=== PATIENT | male | born 1975 | race American Indian/Alaskan Native ===

== ENCOUNTER 2019-03-19 22:27 | Emergency (ER) | payer SELFPAY ==
--- NOTE | 2019-03-20 01:09 | XRay Report ---
CHEST 2 VIEWS INDICATION: Cough and KIERA. COMPARISON: None. FINDINGS: Support devices: None. Heart: Mild cardiomegaly. Lungs/Pleura: Localized consolidation right base. No significant pleural effusion. IMPRESSION: Right basilar pneumonia. Signer Name: Lenin Wade MD Signed: 03/20/2019 1:04 AM Workstation Name: [id number]
[2019-03-20] MEDS ORDERED: levoFLOXacin 750 MG TAB PO ONE (01:12)
[2019-03-20] MEDS ORDERED: IPRATROPIUM/ALBUTEROL SULFATE 3 ML AMPUL.NEB IH ONE (01:12)
--- NOTE | 2019-03-20 01:39 | Emergency Department Report ---
- General Chief Complaint: Dyspnea/Respdistress Stated Complaint: SOB Time Seen by Provider: 03/20/19 00:46 Source: patient Mode of arrival: Ambulatory Limitations: No Limitations - History of Present Illness Initial Comments: This pleasant 43-year-old male present emergency department with a chief complaint of cough, congestion and shortness of breath the past 2 days. Patient reports a past medical history of hypertension but is not currently name medications. He reports history of tobacco use and smokes about a pack a day for the past 10 years. Patient reports he has had a productive cough and tightness in his chest as well as subjective fever at home. Patient denies any dyspnea on exertion or chest pain on exertion, pleuritic pain, lower extremity edema, recent travel, sick contacts, nausea, vomiting, diarrhea, or any associated symptoms. Patient denies any pain. MD Complaint: fever, cough Onset/Timin -: days(s) Severity: mild Severity scale (0 -10): 0 Consistency: intermittent Improves With: nothing Worsens With: activity Associated Symptoms: denies other symptoms. denies: myalgias, diaphoresis, headache, rhinorrhea, nasal congestion, sore throat, stiff neck, chest pain, abdominal pain, nausea, vomiting, diarrhea, dysuria, rash, confusion, right sweats, epistaxis, hoarseness Treatments Prior to Arrival: none - Related Data Previous Rx's Medication Instructions Recorded Last Taken Type ALBUTEROL Inhaler (OR & NICU) 2 puff IH QID PRN #8.5 gram 03/20/19 Unknown Rx [ProAir HFA Inhaler] levoFLOXacin [Levaquin] 750 mg PO QDAY #5 tablet 03/20/19 Unknown Rx methylPREDNISolone [Medrol 4MG 4 mg PO ONCE #1 tab.ds.pk 03/20/19 Unknown Rx DOSEPAK (21 tabs)] Allergies Allergy/AdvReac Type Severity Reaction Status Date / Time No Known Allergies Allergy Unverified 03/20/19 00:16 ED Review of Systems ROS: Stated complaint: SOB Other details as noted in HPI Comment: All other systems reviewed and negative Constitutional: see HPI, fever. denies: chills Eyes: denies: eye pain, eye discharge, vision change ENT: denies: ear pain, throat pain Respiratory: see HPI, cough, wheezing. denies: orthopnea, shortness of breath, SOB with exertion, SOB at rest Cardiovascular: denies: chest pain, palpitations Endocrine: no symptoms reported Gastrointestinal: denies: abdominal pain, nausea, diarrhea Genitourinary: denies: urgency, dysuria Musculoskeletal: denies: back pain, joint swelling, arthralgia Skin: denies: rash, lesions Neurological: denies: headache, weakness, paresthesias Psychiatric: denies: anxiety, depression Hematological/Lymphatic: denies: easy bleeding, easy bruising ED Past Medical Hx - Past Medical History Previous Medical History?: Yes Hx Hypertension: Yes - Surgical History Past Surgical History?: No - Social History Smoking Status: Current Every Day Smoker Substance Use Type: None - Medications Home Medications: Home Medications Medication Instructions Recorded Confirmed Last Taken Type ALBUTEROL Inhaler (OR & NICU) 2 puff IH QID PRN #8.5 gram 03/20/19 Unknown Rx [ProAir HFA Inhaler] levoFLOXacin [Levaquin] 750 mg PO QDAY #5 tablet 03/20/19 Unknown Rx methylPREDNISolone [Medrol 4MG 4 mg PO ONCE #1 tab.ds.pk 03/20/19 Unknown Rx DOSEPAK (21 tabs)] ED Physical Exam - General Limitations: No Limitations General appearance: alert, in no apparent distress - Head Head exam: Present: atraumatic, normocephalic - Eye Eye exam: Present: normal appearance, PERRL, EOMI Pupils: Present: normal accommodation - ENT ENT exam: Present: normal exam, normal orophraynx, mucous membranes moist, TM's normal bilaterally - Neck Neck exam: Present: normal inspection, full ROM. Absent: tenderness, meningismus - Respiratory Respiratory exam: Present: normal lung sounds bilaterally, wheezes (mild expiratory wheezes bilaterally with no accessory muscle use or increased work of breathing). Absent: respiratory distress, rales, rhonchi, stridor - Cardiovascular Cardiovascular Exam: Present: regular rate, normal rhythm, normal heart sounds. Absent: systolic murmur, diastolic murmur, rubs, gallop - GI/Abdominal GI/Abdominal exam: Present: soft, normal bowel sounds. Absent: tenderness, guarding, rebound, rigid - Rectal Rectal exam: Present: deferred - Extremities Exam Extremities exam: Present: normal inspection, full ROM, other (negative Homans sign bilaterally, no posterior calf tenderness or palpable cords.). Absent: tenderness, calf tenderness - Back Exam Back exam: Present: normal inspection, full ROM. Absent: tenderness, CVA tenderness (R), CVA tenderness (L) - Neurological Exam Neurological exam: Present: alert, oriented X3, normal gait. Absent: motor sensory deficit - Psychiatric Psychiatric exam: Present: normal affect, normal mood - Skin Skin exam: Present: warm, dry, intact, normal color. Absent: rash ED Course Vital Signs 03/20/19 00:09 Temperature 98.2 F Pulse Rate 78 Respiratory 20 Rate Blood Pressure 169/108 [Left] O2 Sat by Pulse 96 Oximetry ED Medical Decision Making - Radiology Data Radiology results: report reviewed, image reviewed XRay Report Signed Patient: DOMINIQUE SEPULVEDA MR#: [id number] : 1975 Acct:[id number] Age/Sex: 43 / M ADM Date: 03/19/19 Loc: ED Attending Dr: Ordering Physician: VICTOR MANUEL ROLAND Date of Service: 03/20/19 Procedure(s): XR chest routine 2V Accession Number(s): [id number] cc: VICTOR MANUEL ROLAND Fluoro Time In Minutes: CHEST 2 VIEWS INDICATION: Cough and KIERA. COMPARISON: None. FINDINGS: Support devices: None. Heart: Mild cardiomegaly. Lungs/Pleura: Localized consolidation right base. No significant pleural effusion. IMPRESSION: Right basilar pneumonia. Signer Name: Lenin Wade MD Signed: 03/20/2019 1:04 AM Workstation Name: [id number] Transcribed By: ES Dictated By: Lenin Wade MD Electronically Authenticated By: Lenin Wade MD Signed Date/Time: 03/20/19 0104 - Medical Decision Making Patient is nontoxic in no acute distress. Vitals are stable with a pulse ox of 96 and no tachycardia. Patient is PERC negative and low risk for PE by Wells criteria. He had wheezing on exam and was given a breathing treatment and steroid cream or department and his symptoms significantly improved. Wheezing resolved after reevaluation. X-ray was ordered and showed a right basilar pneumonia. Patient is otherwise young and healthy and I will treat him with Levaquin 750 by mouth daily 5 days. First dose was given in emergency department. He was instructed to follow-up with his primary care doctor and return for spreading changing worsening symptoms. Patient has no SIRS criteria and does not meet sepsis criteria. He is well-appearing and agreeable with plan. All questions were answered - Differential Diagnosis pneumonia, influenza, PE, viral respiratory infection, COPD exacerbation Critical care attestation.: If time is entered above; I have spent that time in minutes in the direct care of this critically ill patient, excluding procedure time. ED Disposition Clinical Impression: CAP (community acquired pneumonia) Qualifiers: Laterality: right Lung location: lower lobe of lung Qualified Code(s): J18.9 - Pneumonia, unspecified organism Disposition: TO HOME OR SELFCARE Is pt being admited?: No Does the pt Need Aspirin: No Condition: Stable Instructions: Bacterial Pneumonia (ED) Prescriptions: levoFLOXacin [Levaquin] 750 mg PO QDAY #5 tablet methylPREDNISolone [Medrol 4MG DOSEPAK (21 tabs)] 4 mg PO ONCE #1 tab.ds.pk ALBUTEROL Inhaler (OR & NICU) [ProAir HFA Inhaler] 2 puff IH QID PRN #8.5 gram PRN Reason: Shortness Of Breath Referrals: PRIMARY CARE, [Primary Care Provider] - 3-[address] [facility] [Provider Group] - 3-5 Days JERSON GRAY DO [Staff Physician] - 3-5 Days Forms: Work/School Release Form(ED) Time of Disposition: 01:43
[2019-03-20 01:58] VITALS: BP 149/88
== END 2019-03-20 02:00 | disposition home or self-care (01) ==
LOC: ED 22:27
DX: J18.9 Pneumonia, unspecified organism (principal); F17.200 Nicotine dependence, unspecified, uncomplicated; I10 Essential (primary) hypertension; Z79.899 Other long term (current) drug therapy
CPT/HCPCS: 71046; 94640

== ENCOUNTER 2019-03-28 04:33 | Inpatient (IN) | payer SELFPAY ==
[2019-03-28] MEDS ORDERED: IPRATROPIUM/ALBUTEROL SULFATE 3 ML AMPUL.NEB IH ONE (05:20)
[2019-03-28] MEDS ORDERED: predniSONE 20 MG TAB PO ONE (05:20)
--- NOTE | 2019-03-28 05:35 | XRay Report ---
CHEST 1 VIEW INDICATION / CLINICAL INFORMATION: Dyspnea. COMPARISON: None available. FINDINGS: SUPPORT DEVICES: None. HEART / MEDIASTINUM: Mild cardiomegaly LUNGS / PLEURA: Patchy bibasilar airspace density noted bilaterally. Small pleural effusions present. Signer Name: Quinn Paredes MD Signed: 03/28/2019 5:31 AM Workstation Name: [id number]
[2019-03-28 06:03] LABS: Basophils % (Auto) 0.5 % (0.0-1.8); Eosinophils # (Auto) 0.2 K/mm3 (0.0-0.4); Eosinophils % (Auto) 3.1 % (0.0-4.3); Hematocrit 39.6 % (35.5-45.6); Hemoglobin 13.3 gm/dl (11.8-15.2); Lymphocytes # (Auto) 1.6 K/mm3 (1.2-5.4); Lymphocytes % (Auto) 24.1 % (13.4-35.0); Mean Corpuscular HGB Conc 34 % (32-34); Mean Corpuscular Volume 86 fl (84-94); Monocytes # (Auto) 0.5 K/mm3 (0.0-0.8); Monocytes % (Auto) 6.7 % (0.0-7.3); Platelet Count 230 K/mm3 (140-440); Red Blood Count 4.62 M/mm3 (3.65-5.03); Red Cell Distribution Width 15.1 % (13.2-15.2)
[2019-03-28] MEDS ORDERED: NITROGLYCERIN 2% OINT 1 GM TP ONE (06:18)
[2019-03-28 06:28] LABS: Alanine Aminotransferase 49 units/L (7-56); Albumin 3.8 g/dL (3.9-5); BUN/Creatinine Ratio 20; Blood Urea Nitrogen 20 mg/dL (9-20); Calcium 8.5 mg/dL (8.4-10.2); Hemolysis Index 2
--- NOTE | 2019-03-28 07:24 | Emergency Department Report ---
ED Shortness of Breath HPI - General Chief Complaint: Upper Respiratory Infection Stated Complaint: COUGH KIERA Time Seen by Provider: 03/28/19 06:16 Source: patient Mode of arrival: Ambulatory Limitations: No Limitations - History of Present Illness Initial Comments: This is a 43-year-old man who denies previous history of hypertension. I reviewed his previous vital signs upon his visit on 1120. He had stage 2-3 moderately severe hypertension. He was treated for URI/questionable pneumonia. He states he's been short of breath throughout this time. He has dyspneia on exertion. He does not complain of chest pain. He has accelerated hypertension today. MD Complaint: shortness of breath -: Gradual Severity: moderate (dyspnea denies chest) Consistency: intermittent Worsens With: lying flat Context: recent URI Associated Symptoms: denies other symptoms - Related Data Home Medications Medication Instructions Recorded Confirmed Last Taken No Known Home Medications [No 03/28/19 03/28/19 Unknown Reported Home Medications] Allergies Allergy/AdvReac Type Severity Reaction Status Date / Time No Known Allergies Allergy Unverified 03/20/19 00:16 ED Review of Systems ROS: Stated complaint: COUGH KIERA Other details as noted in HPI Constitutional: denies: chills, fever Eyes: denies: eye pain, eye discharge, vision change ENT: denies: ear pain, throat pain Respiratory: shortness of breath. denies: cough, wheezing Cardiovascular: denies: chest pain, palpitations Endocrine: no symptoms reported Gastrointestinal: denies: abdominal pain, nausea, diarrhea Genitourinary: denies: urgency, dysuria Musculoskeletal: denies: back pain, joint swelling, arthralgia Skin: denies: rash, lesions Neurological: denies: headache, weakness, paresthesias Psychiatric: denies: anxiety, depression Hematological/Lymphatic: denies: easy bleeding, easy bruising ED Past Medical Hx - Past Medical History Previous Medical History?: Yes Hx Hypertension: Yes - Surgical History Past Surgical History?: No - Social History Smoking Status: Current Every Day Smoker - Medications Home Medications: Home Medications Medication Instructions Recorded Confirmed Last Taken Type No Known Home Medications [No 03/28/19 03/28/19 Unknown History Reported Home Medications] ED Physical Exam - General Limitations: No Limitations General appearance: alert, in no apparent distress - Head Head exam: Present: atraumatic, normocephalic - Eye Eye exam: Present: normal appearance. Absent: scleral icterus - ENT ENT exam: Present: mucous membranes moist - Neck Neck exam: Present: normal inspection - Respiratory Respiratory exam: Present: rales (bilaterally). Absent: respiratory distress - Cardiovascular Cardiovascular Exam: Present: regular rate, normal rhythm, S3, S4. Absent: systolic murmur, diastolic murmur, rubs, gallop - GI/Abdominal GI/Abdominal exam: Present: soft, normal bowel sounds. Absent: distended, tenderness, guarding, rebound, rigid - Rectal Rectal exam: Present: deferred - Extremities Exam Extremities exam: Present: other (1+ pretibial edema). Absent: calf tenderness - Back Exam Back exam: Present: normal inspection - Neurological Exam Neurological exam: Present: alert, oriented X3, CN II-XII intact. Absent: motor sensory deficit - Psychiatric Psychiatric exam: Present: normal affect, normal mood - Skin Skin exam: Present: warm, dry, intact, normal color. Absent: rash ED Course Vital Signs 03/28/19 03/28/19 03/28/19 04:38 05:09 05:42 Temperature 97.8 F 98.3 F Pulse Rate 87 84 85 Pulse Rate [ Bilateral Throughout] Respiratory 20 23 16 Rate Respiratory Rate [Bilateral Throughout] Blood Pressure 186/124 174/118 Blood Pressure 174/118 [Left] O2 Sat by Pulse 92 96 96 Oximetry 03/28/19 03/28/19 03/28/19 05:55 06:00 06:31 Temperature Pulse Rate 79 84 Pulse Rate [ 85 Bilateral Throughout] Respiratory 22 Rate Respiratory 20 Rate [Bilateral Throughout] Blood Pressure 172/121 157/116 Blood Pressure [Left] O2 Sat by Pulse 98 Oximetry 03/28/19 06:41 Temperature Pulse Rate 89 Pulse Rate [ Bilateral Throughout] Respiratory Rate Respiratory Rate [Bilateral Throughout] Blood Pressure 157/116 Blood Pressure [Left] O2 Sat by Pulse Oximetry ED Medical Decision Making - Lab Data Result diagrams: 03/28/19 05:35 03/28/19 05:35 - EKG Data -: EKG Interpreted by Co EKG shows normal: sinus rhythm Rate: normal - EKG Data Interpretation: nonspecific ST-T wave sam, other (left axis deviation/LAFB and poor R-wave progression) - Radiology Data Radiology results: report reviewed (LUNGS / PLEURA: Patchy bibasilar airspace density noted bilaterally. Small pleural effusions), image reviewed Critical care attestation.: If time is entered above; I have spent that time in minutes in the direct care of this critically ill patient, excluding procedure time. ED Disposition Clinical Impression: Malignant hypertension, CHF (congestive heart failure) Disposition: OP ADMIT IP TO THIS HOSP Is pt being admited?: Yes Does the pt Need Aspirin: Yes Condition: Stable Instructions: Hypertension (ED) Referrals: PRIMARY CARE, [Primary Care Provider] - 3-5 Days Time of Disposition: 07:31
[2019-03-28] MEDS ORDERED: ASPIRIN 325 MG TAB PO ONE (07:31)
[2019-03-28] MEDS ORDERED: FUROSEMIDE 40 MG/4 ML INJ IV ONE (07:32)
[2019-03-28 07:46] LABS: INR 1.01 (0.87-1.13)
[2019-03-28 07:47] LABS: Partial Thromboplastin Time 30.7 Sec. (24.2-36.6)
[2019-03-28 08:49] LABS: Bilirubin,Urine NEG (Negative); Blood,Urine NEG (Negative); Color,Urine Yellow (Yellow); Protein,Urine <15 mg/dL mg/dL (Negative); Urobilinogen,Urine < 2.0 mg/dL (<2.0)
[2019-03-28 09:09] LABS: Amphetamine Screen,Urine PRESUMPTIVE NEGATIVE; Benzodiazepines Screen,Urine PRESUMPTIVE NEGATIVE; Cannabinoid Screen,Urine PRESUMPTIVE NEGATIVE; Cocaine Screen,Urine PRESUMPTIVE NEGATIVE; Methadone Screen,Urine PRESUMPTIVE NEGATIVE; Opiate Screen,Urine PRESUMPTIVE NEGATIVE
--- NOTE | 2019-03-28 12:19 | History and Physical Report ---
History of Present Illness Date of examination: 03/28/19 Date of admission: 03/28/19 07:37 Chief complaint: Shortness of breath on exertion for 4 days History of present illness: 43-year-old -[place] male with history of hypertension who is not taking any medications comes in for increasing shortness of breath on exertion for last 3-4 days. Patient was treated for questionable pneumonia and upper respiratory tract infection on 03/18/2019. Patient was given antibiotics with no relief. In the emergency room patient's blood pressure was very high--186/124.Patient also has sob on minimal exertion and orthopnea. Patient was diagnosed with high blood pressure 10 months ago. Patient very noncompliant and in denial about his blood pressure. Past Medical History Previous Medical History?: Yes Hx Hypertension: Yes Surgical History Past Surgical History?: No Social History Smoking Status: Current Every Day Smoker Family history Htn Medications Home Medications: Home Medications Medication Instructions Recorded Confirmed Last Taken Type No Known Home Medications [No 03/28/19 03/28/19 Unknown History Reported Home Medications] Review of Systems ROS: Stated complaint: COUGH KIERA Other details as noted in HPI Constitutional: denies: chills, fever Eyes: denies: eye pain, eye discharge, vision change ENT: denies: ear pain, throat pain Respiratory: shortness of breath. denies: cough, wheezing Cardiovascular: denies: chest pain, palpitations Endocrine: no symptoms reported Gastrointestinal: denies: abdominal pain, nausea, diarrhea Genitourinary: denies: urgency, dysuria Musculoskeletal: denies: back pain, joint swelling, arthralgia Skin: denies: rash, lesions Neurological: denies: headache, weakness, paresthesias Psychiatric: denies: anxiety, depression Hematological/Lymphatic: denies: easy bleeding, easy bruising Medications and Allergies Allergies Allergy/AdvReac Type Severity Reaction Status Date / Time No Known Allergies Allergy Verified 03/28/19 12:30 Home Medications Medication Instructions Recorded Confirmed Last Taken Type Potassium Chloride [K-Dur] 10 meq PO QDAY #30 tablet 03/28/19 Unknown Rx Valsartan [Diovan] 160 mg PO BID #60 tablet 03/28/19 Unknown Rx carvediloL [Coreg] 6.25 mg PO BID #60 tablet 03/28/19 Unknown Rx hydroCHLOROthiazide [HCTZ] 25 mg PO QDAY #30 tablet 03/28/19 Unknown Rx Exam - Constitutional Vitals: Temp Pulse Resp BP Pulse Ox 98.0 F 88 16 159/99 96 03/28/19 11:14 03/28/19 11:14 03/28/19 11:14 03/28/19 11:14 03/28/19 11:14 General appearance: Present: no acute distress, well-nourished - EENT Eyes: Present: PERRL ENT: hearing intact, clear oral mucosa - Neck Neck: Present: supple, normal ROM - Respiratory Respiratory effort: normal Respiratory: bilateral: CTA - Cardiovascular Heart rate: 86 Rhythm: regular Heart Sounds: Present: S1 & S2. Absent: rub, click - Extremities Extremities: no ischemia, pulses intact, pulses symmetrical, No edema Peripheral Pulses: within normal limits - Abdominal General gastrointestinal: Present: soft, non-tender, non-distended, normal bowel sounds Male genitourinary: Present: normal - Rectal Rectal Exam: deferred - Integumentary Integumentary: Present: clear, warm, dry - Musculoskeletal Musculoskeletal: gait normal, strength equal bilaterally - Psychiatric Psychiatric: appropriate mood/affect, intact judgment & insight - Neurologic Neurologic: CNII-XII intact, moves all extremities Results - Labs CBC & Chem 7: 03/28/19 05:35 03/28/19 05:35 Labs: Laboratory Last Values WBC 6.8 K/mm3 (4.5-11.0) 03/28/19 05:35 RBC 4.62 M/mm3 (3.65-5.03) 03/28/19 05:35 Hgb 13.3 gm/dl (11.8-15.2) 03/28/19 05:35 Hct 39.6 % (35.5-45.6) 03/28/19 05:35 MCV 86 fl (84-94) 03/28/19 05:35 MCH 29 pg (28-32) 03/28/19 05:35 MCHC 34 % (32-34) 03/28/19 05:35 RDW 15.1 % (13.2-15.2) 03/28/19 05:35 Plt Count 230 K/mm3 (140-440) 03/28/19 05:35 Lymph % (Auto) 24.1 % (13.4-35.0) 03/28/19 05:35 Daniels % (Auto) 6.7 % (0.0-7.3) 03/28/19 05:35 Eos % (Auto) 3.1 % (0.0-4.3) 03/28/19 05:35 Baso % (Auto) 0.5 % (0.0-1.8) 03/28/19 05:35 Lymph # 1.6 K/mm3 (1.2-5.4) 03/28/19 05:35 Daniels # 0.5 K/mm3 (0.0-0.8) 03/28/19 05:35 Eos # 0.2 K/mm3 (0.0-0.4) 03/28/19 05:35 Baso # 0.0 K/mm3 (0.0-0.1) 03/28/19 05:35 Seg Neutrophils % 65.6 % (40.0-70.0) 03/28/19 05:35 Seg Neutrophils # 4.4 K/mm3 (1.8-7.7) 03/28/19 05:35 PT 13.2 Sec. (12.2-14.9) 03/28/19 06:35 INR 1.01 (0.87-1.13) 03/28/19 06:35 APTT 30.7 Sec. (24.2-36.6) 03/28/19 06:35 Sodium 142 mmol/L (137-145) 03/28/19 05:35 Potassium 3.6 mmol/L (3.6-5.0) 03/28/19 05:35 Chloride 106.3 mmol/L (98-107) 03/28/19 05:35 Carbon Dioxide 26 mmol/L (22-30) 03/28/19 05:35 Anion Gap 13 mmol/L 03/28/19 05:35 BUN 20 mg/dL (9-20) 03/28/19 05:35 Creatinine 1.0 mg/dL (0.8-1.5) 03/28/19 05:35 Estimated GFR > 60 ml/min 03/28/19 05:35 BUN/Creatinine Ratio 20 % 03/28/19 05:35 Glucose 163 mg/dL (75-100) H 03/28/19 05:35 Calcium 8.5 mg/dL (8.4-10.2) 03/28/19 05:35 Total Bilirubin 0.40 mg/dL (0.1-1.2) 03/28/19 05:35 AST 26 units/L (5-40) 03/28/19 05:35 ALT 49 units/L (7-56) 03/28/19 05:35 Alkaline Phosphatase 55 units/L (35-129) 03/28/19 05:35 Troponin T 0.015 ng/mL (0.00-0.029) 03/28/19 05:35 NT-Pro-B Natriuret Pep 1055 pg/mL (0-450) H 03/28/19 06:35 Total Protein 6.2 g/dL (6.3-8.2) L 03/28/19 05:35 Albumin 3.8 g/dL (3.9-5) L 03/28/19 05:35 Albumin/Globulin Ratio 1.6 % 03/28/19 05:35 Urine Color Yellow (Yellow) 03/28/19 08:16 Urine Turbidity Clear (Clear) 03/28/19 08:16 Urine pH 6.0 (5.0-7.0) 03/28/19 08:16 Ur Specific [place] 1.014 (1.003-1.030) 03/28/19 08:16 Urine Protein <15 mg/dl mg/dL (Negative) 03/28/19 08:16 Urine Glucose (UA) Neg mg/dL (Negative) 03/28/19 08:16 Urine Ketones Neg mg/dL (Negative) 03/28/19 08:16 Urine Blood Neg (Negative) 03/28/19 08:16 Urine Nitrite Neg (Negative) 03/28/19 08:16 Urine Bilirubin Neg (Negative) 03/28/19 08:16 Urine Urobilinogen < 2.0 mg/dL (<2.0) 03/28/19 08:16 Ur Leukocyte Esterase Neg (Negative) 03/28/19 08:16 Urine WBC (Auto) 0.0 /HPF (0.0-6.0) 03/28/19 08:16 Urine RBC (Auto) 1.0 /HPF (0.0-6.0) 03/28/19 08:16 U Epithel Cells (Auto) < 1.0 /HPF (0-13.0) 03/28/19 08:16 Urine Opiates Screen Presumptive negative 03/28/19 08:16 Urine Methadone Screen Presumptive negative 03/28/19 08:16 Ur Barbiturates Screen Presumptive negative 03/28/19 08:16 Ur Phencyclidine Scrn Presumptive negative 03/28/19 08:16 Ur Amphetamines Screen Presumptive negative 03/28/19 08:16 U Benzodiazepines Scrn Presumptive negative 03/28/19 08:16 Urine Cocaine Screen Presumptive negative 03/28/19 08:16 U Marijuana (THC) Screen Presumptive negative 03/28/19 08:16 Drugs of Abuse Note Disclamer 03/28/19 08:16 Short CBC 03/28/19 Range/Units 05:35 WBC 6.8 (4.5-11.0) K/mm3 Hgb 13.3 (11.8-15.2) gm/dl Hct 39.6 (35.5-45.6) % Plt Count 230 (140-440) K/mm3 BMP 03/28/19 05:35 Sodium 142 Potassium 3.6 Chloride 106.3 Carbon Dioxide 26 BUN 20 Creatinine 1.0 Glucose 163 H Calcium 8.5 Cardiac Enzymes 03/28/19 Range/Units 05:35 Troponin T 0.015 (0.00-0.029) ng/mL Liver Function 03/28/19 Range/Units 05:35 Total Bilirubin 0.40 (0.1-1.2) mg/dL AST 26 (5-40) units/L ALT 49 (7-56) units/L Alkaline Phosphatase 55 (35-129) units/L Albumin 3.8 L (3.9-5) g/dL Urine 03/28/19 Range/Units 08:16 Urine Color Yellow (Yellow) Urine pH 6.0 (5.0-7.0) Ur Specific [place] 1.014 (1.003-1.030) Urine Protein <15 mg/dl (Negative) mg/dL Urine Glucose (UA) Neg (Negative) mg/dL - Imaging and Cardiology EKG: report reviewed (LVH) Chest x-ray: report reviewed Imaging and Cardiology: Chest x-ray LUNGS / PLEURA: Patchy bibasilar airspace density noted bilaterally. Small pleural effusions present. 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
[2019-03-28] MEDS ORDERED: ACETAMINOPHEN 325 MG TAB PO PRN (12:21)
[2019-03-28] MEDS ORDERED: oxyCODONE /ACETAMINOPHEN 5-325MG TAB PO PRN (12:21)
[2019-03-28] MEDS ORDERED: HYDROmorphone 1 MG/1 ML INJ IV PRN (12:21)
[2019-03-28] MEDS ORDERED: ONDANSETRON 4 MG/2 ML INJ IV PRN (12:21)
[2019-03-28] MEDS ORDERED: HEPARIN 5,000 UNIT/1 ML VIAL SUB-Q SCH (12:45)
[2019-03-28] MEDS ORDERED: carvediloL 6.25 MG TAB PO SCH (13:00)
[2019-03-28] MEDS ORDERED: VALSARTAN 160MG TAB PO SCH (13:00)
[2019-03-28] MEDS ORDERED: hydroCHLOROthiazide 25 MG TAB PO SCH (13:00)
[2019-03-28] MEDS ORDERED: POTASSIUM CHLORIDE ER 20 MEQ TAB PO SCH (13:00)
[2019-03-28] MEDS ORDERED: NICOTINE 14 MG/24 HR PATCH TD SCH (13:00)
[2019-03-28] MEDS ORDERED: FUROSEMIDE 40 MG/4 ML INJ IV SCH (14:00)
[2019-03-28 16:22] VITALS: BP 157/101
[2019-03-28] MEDS ORDERED: FAMOTIDINE 20 MG TAB PO SCH (22:00)
--- NOTE | 2019-03-29 22:34 | Discharge Summary ---
Providers - Providers Date of Admission: 03/28/19 07:37 Date of discharge: 03/28/19 Attending physician: FAROOQ LOPEZ Primary care physician: PINION STAKER Hospitalization Condition: Stable Pertinent studies: Echocardiogram--systolic heart failure Ejection fraction of 20-25% Hospital course: (1) Hypertensive emergency Status: Acute Plan to address problem: Patient started on Valsartan coreg and IV Hydralazine 10 mg q3 prn irritable (2) CHF exacerbation Status: Acute Qualifiers: Heart failure type: combined systolic and diastolic Qualified Code(s): I50.43 - Acute on chronic combined systolic (congestive) and diastolic (congestive) heart failure Plan to address problem: ECHO ordered for EF Clinically history and exam c/w CHF (3) Nicotine dependence Status: Chronic Qualifiers: Nicotine product type: cigarettes Plan to address problem: Counselled about stopping smoking Nicoderm patch initiated (4) DVT prophylaxis Status: Acute Plan to address problem: On Heparin 5000 q 12 Patient signed out AMA before I could give him his echocardiogram results. Patient to follow at [facility] Prescriptions for valsartan and Coreg given Disposition: [id number] LEFT AGAINST MED ADVICE - Discharge Diagnoses (1) Hypertensive emergency Status: Acute (2) CHF exacerbation Status: Acute Qualifiers: Heart failure type: combined systolic and diastolic Qualified Code(s): I50.43 - Acute on chronic combined systolic (congestive) and diastolic (congestive) heart failure (3) Nicotine dependence Status: Chronic Qualifiers: Nicotine product type: cigarettes (4) DVT prophylaxis Status: Acute Core Measure Documentation - Palliative Care Palliative Care/ Comfort Measures: Not Applicable - Core Measures Any of the following diagnoses?: none Exam - Constitutional Vitals: Temp Pulse Resp BP Pulse Ox 99.3 F 80 24 157/101 96 03/28/19 11:37 03/28/19 16:22 03/28/19 11:37 03/28/19 16:22 03/28/19 11:37 General appearance: Present: no acute distress, well-nourished - EENT Eyes: Present: PERRL ENT: hearing intact, clear oral mucosa - Neck Neck: Present: supple, normal ROM - Respiratory Respiratory effort: normal Respiratory: bilateral: CTA - Cardiovascular Heart rate: 78 Rhythm: regular Heart Sounds: Present: S1 & S2. Absent: rub, click - Extremities Extremities: no ischemia, pulses intact, pulses symmetrical, No edema Peripheral Pulses: within normal limits - Abdominal General gastrointestinal: Present: soft, non-tender, non-distended, normal bowel sounds Male genitourinary: Present: normal - Rectal Rectal Exam: deferred - Integumentary Integumentary: Present: clear, warm, dry - Musculoskeletal Musculoskeletal: gait normal, strength equal bilaterally - Psychiatric Psychiatric: appropriate mood/affect, intact judgment & insight - Neurologic Neurologic: CNII-XII intact, moves all extremities - Allied Health Allied health notes reviewed: nursing, case management Plan Activity: no restrictions Diet: low fat, low cholesterol, low salt Follow up with: PRIMARY CAREMD [Primary Care Provider] - 3-5 Days SEDA GONZALES MD [Staff Physician] - 7 Days Prescriptions: carvediloL [Coreg] 6.25 mg PO BID #60 tablet Valsartan [Diovan] 160 mg PO BID #60 tablet hydroCHLOROthiazide [HCTZ] 25 mg PO QDAY #30 tablet Potassium Chloride [K-Dur] 10 meq PO QDAY #30 tablet
== END 2019-03-28 16:50 | disposition left against medical advice (07) | DRG 304 ==
LOC: ED 04:33 → 3A 07:37
PROVIDERS: ADMIT Internal Medicine; ATTEND Internal Medicine
DX: I16.1 Hypertensive emergency (principal); I50.43 Acute on chronic combined systolic (congestive) and diastolic (congestive) heart failure; I11.0 Hypertensive heart disease with heart failure; F17.210 Nicotine dependence, cigarettes, uncomplicated; Z71.6 Tobacco abuse counseling; Z82.49 Family history of ischemic heart disease and other diseases of the circulatory system; Z79.899 Other long term (current) drug therapy
CPT/HCPCS: 36415; 71045; 80053; 80307; 81001; 83036; 83880; 84484; 85025; 85610; 85730; 87040; 93005; 93010; 93306; 94644; 96374; 96375; G0378; J1644; J1940; J7512

== ENCOUNTER 2019-06-24 18:13 | Inpatient (IN) | payer OTHER ==
--- NOTE | 2019-06-24 19:00 | Event Note ---
ED Screening Note Date of service: 06/24/19 Time: 18:56 ED Screening Note: 44 y o male presents to Ed cc of SOB worse with laying down intermittent coughing no hx of COPD or asthma This initial assessment/diagnostic orders/clinical plan/treatment(s) is/are subject to change based on patients health status, clinical progression and re- assessment by fellow clinical providers in the ED. Further treatment and workup at subsequent clinical providers discretion. Patient/guardian urged not to elope from the ED as their condition may be serious if not clinically assessed and managed. Initial orders include: cxr
--- NOTE | 2019-06-24 19:34 | XRay Report ---
CHEST 2 VIEWS INDICATION / CLINICAL INFORMATION: sob. COMPARISON: One view of the chest from 03/28/2019. FINDINGS: SUPPORT DEVICES: None. HEART / MEDIASTINUM: Cardiomegaly has worsened. LUNGS / PLEURA: Bilateral interstitial opacities likely represent edema/atelectasis. No significant p leural effusion. No pneumothorax. ADDITIONAL FINDINGS: No significant additional findings. IMPRESSION: Interval worsening of cardia megaly with probable pulmonary edema/atelectasis. Signer Name: Sukhdev Sanz MD Signed: 06/24/2019 7:30 PM Workstation Name: [id number]
--- NOTE | 2019-06-24 22:34 | Emergency Department Report ---
Minor Respiratory - HPI Duration: 4 Days Pain Location: Other (Cough and shortness of breath) Severity: moderate Minor Respiratory: Yes Cough, Yes Shortness of Breath, No Rhinorrhea, No Sore Throat, No Able to Tolerate Fluids, No Ear Pain, No Sick Contacts, No Hemoptysis, No Chest Pain, No Fever Other History: This is a 44-year-old -[place] male who presents to the emergency room with shortness of breath and a cough for 3 to 4 days. Patient states he is currently not taking anything for symptomatic relief. He reports shortness of breath is occasional. Past medical history of hypertension. Current smoker. He also reports myalgia with associated symptoms. He denies nausea, vomiting, diarrhea, palpitations, weakness, headache. <VIPUL HERNANDEZ - Last Filed: 06/25/19 00:42> <KELVIN PENALOZA III - Last Filed: 06/25/19 01:07> - HPI Chief Complaint: Upper Respiratory Infection Stated Complaint: CHEST PAIN Time Seen by Provider: 06/24/19 21:58 ED Review of Systems ROS: Stated complaint: CHEST PAIN Other details as noted in HPI Constitutional: denies: chills, fever Respiratory: cough, SOB with exertion. denies: shortness of breath, wheezing Cardiovascular: denies: chest pain, palpitations Gastrointestinal: denies: abdominal pain, nausea, diarrhea Musculoskeletal: myalgia. denies: back pain, joint swelling, arthralgia Skin: denies: rash, lesions Neurological: denies: headache, weakness, paresthesias Psychiatric: denies: anxiety, depression <VIPUL HERNANDEZ - Last Filed: 06/25/19 00:42> ROS: Stated complaint: CHEST PAIN Other details as noted in HPI <KELVIN PENALOZA III - Last Filed: 06/25/19 01:07> ED Past Medical Hx - Past Medical History Previous Medical History?: Yes Hx Hypertension: Yes Hx Asthma: No - Social History Smoking Status: Current Every Day Smoker Substance Use Type: None <VIPUL HERNANDEZ - Last Filed: 06/25/19 00:42> <KELVIN PENALOZA III - Last Filed: 06/25/19 01:07> - Medications Home Medications: Home Medications Medication Instructions Recorded Confirmed Last Taken Type Valsartan [Diovan] 160 mg PO BID #60 tablet 03/28/19 Unknown Rx carvediloL [Coreg] 6.25 mg PO BID #60 tablet 03/28/19 Unknown Rx hydroCHLOROthiazide [HCTZ] 25 mg PO QDAY #30 tablet 03/28/19 Unknown Rx Minor Respiratory Exam - Exam General: Vital signs noted. No distress. Alert and acting appropriately. HEENT: Yes Moist Mucous Membranes, No Pharyngeal Erythema, No Pharyngeal Ex udates, No Rhinorrhea, No Conjuctival Injection, No Frontal Tenderness, No Maxillary Tenderness Ear: Neither TM Bulge, Neither TM Erythema, Neither EAC Pain, Neither EAC Disch arge Neck: Yes Supple, No Adenopathy Lungs: Yes Cough, Yes Other Abnormal Lung Sounds (Diminished throughout ), No Good Air Exchange, No Wheezes, No Ronchi, No Stridor, No Labored Respirations, No Retractions, No Use of Accessory Muscles Heart: Yes Regular, No Murmur Abdomen: Yes Normal Bowel Sounds, No Tenderness, No Peritoneal Signs Skin: No Rash, No Edema Neurologic: Alert and oriented, no deficits. Musculoskeletal: Unremarkable. <VIPUL HERNANDEZ - Last Filed: 06/25/19 00:42> - Exam General: Vital signs noted. No distress. Alert and acting appropriately. Neurologic: Alert and oriented, no deficits. Musculoskeletal: Unremarkable. <KELVIN PENALOZA III - Last Filed: 06/25/19 01:07> ED Course Vital Signs 06/24/19 18:59 Temperature 98.3 F Pulse Rate 97 H Respiratory 20 Rate Blood Pressure 170/105 O2 Sat by Pulse 94 Oximetry - Reevaluation(s) Reevaluation #2: 06/25/19 00:[address] Araiza, admission for CHF exacerbation 06/25/19 00:[address] Araiza who agrees to admit patient for CHF exacerbation. 06/25/19 00:44 <VIPUL HERNANDEZ - Last Filed: 06/25/19 00:42> Vital Signs 06/24/19 18:59 Temperature 98.3 F Pulse Rate 97 H Respiratory 20 Rate Blood Pressure 170/105 O2 Sat by Pulse 94 Oximetry - Reevaluation(s) Reevaluation #1: I discussed clinical findings with the patient. I discussed plan of care with patient. I examined the patient. The patient has decreased lung sounds bilaterally. Patient also has significant dyspnea on exertion. Patient ambulates minimally and is out of breath. 06/24/19 23:41 I discussed all results with patient. I discussed plan of care with patient. Patient agrees with plan of care and admission. Patient to be admitted to the hospitalist service. 06/25/19 00:28 <KELVIN PENALOZA III - Last Filed: 06/25/19 01:07> ED Medical Decision Making - Lab Data Result diagrams: 06/24/19 22:49 06/24/19 22:49 Lab Results 06/24/19 06/24/19 Range/Units 22:49 22:49 WBC 6.9 (4.5-11.0) K/mm3 RBC 4.87 (3.65-5.03) M/mm3 Hgb 13.5 (11.8-15.2) gm/dl Hct 40.2 (35.5-45.6) % MCV 83 L (84-94) fl MCH 28 (28-32) pg MCHC 33 (32-34) % RDW 15.2 (13.2-15.2) % Plt Count 239 (140-440) K/mm3 Lymph % (Auto) 28.9 (13.4-35.0) % [place] % (Auto) 7.5 H (0.0-7.3) % Eos % (Auto) 4.9 H (0.0-4.3) % Baso % (Auto) 0.9 (0.0-1.8) % Lymph # 2.0 (1.2-5.4) K/mm3 [place] # 0.5 (0.0-0.8) K/mm3 Eos # 0.3 (0.0-0.4) K/mm3 Baso # 0.1 (0.0-0.1) K/mm3 Seg Neutrophils % 57.8 (40.0-70.0) % Seg Neutrophils # 4.0 (1.8-7.7) K/mm3 Sodium 147 H (137-145) mmol/L Potassium 4.1 (3.6-5.0) mmol/L Chloride 106.4 (98-107) mmol/L Carbon Dioxide 26 (22-30) mmol/L Anion Gap 19 mmol/L BUN 19 (9-20) mg/dL Creatinine 1.2 (0.8-1.5) mg/dL Estimated GFR > 60 ml/min BUN/Creatinine Ratio 16 % Glucose 156 H (75-100) mg/dL Calcium 9.2 (8.4-10.2) mg/dL Troponin T < 0.010 (0.00-0.029) ng/mL NT-Pro-B Natriuret Pep 611.6 H (0-450) pg/mL - Radiology Data Radiology results: report reviewed CHEST 2 VIEWS INDICATION / CLINICAL INFORMATION: sob. COMPARISON: One view of the chest from 03/28/2019. FINDINGS: SUPPORT DEVICES: None. HEART / MEDIASTINUM: Cardiomegaly has worsened. LUNGS / PLEURA: Bilateral interstitial opacities likely represent edema/a telectasis. No significant pleural effusion. No pneumothorax. ADDITIONAL FINDINGS: No significant additional findings. IMPRESSION: Interval worsening of cardia megaly with probable pulmonary edema/atelectasis. - Medical Decision Making This is a 44-year-old male who presents to the emergency room with cough and shortness of breath for 3 to 4 days. Past medical history of hypertension. Patient is stable and in no acute distress. Work-up: Chest x-ray. Chest x-ray findings of Interval worsening of cardia megaly with probable pulmonary edema/atelectasis. Consulted attending Dr. Penaloza regarding chest x-ray. Labs ordered. BNP elevated. Consulted hospitalist Dr. Araiza who agrees to admit patient for CHF exacerbation. Patient informed of plan to admit due to acute exacerbation of CHF. Patient agrees with ER plan. <VIPUL HERNANDEZ - Last Filed: 06/25/19 00:42> - Lab Data Result diagrams: 06/24/19 22:49 06/24/19 22:49 - EKG Data -: EKG Interpreted by Mo EKG shows normal: sinus rhythm, intervals, QRS complexes, ST-T waves Rate: normal - EKG Data Interpretation: LVH, other (axis deviation) <KELVIN PENALOZA III - Last Filed: 06/25/19 01:07> Critical care attestation.: If time is entered above; I have spent that time in minutes in the direct care of this critically ill patient, excluding procedure time. <VIPUL HERNANDEZ - Last Filed: 06/25/19 00:42> Critical Care Time: Yes Critical care time in (mins) excluding proc time.: 35 Critical care attestation.: If time is entered above; I have spent that time in minutes in the direct care of this critically ill patient, excluding procedure time. Critical Care Time: 35 minutes <KELVIN PENALOZA III - Last Filed: 06/25/19 01:07> ED Disposition <VIPUL HERNANDEZ - Last Filed: 06/25/19 00:42> Is pt being admited?: Yes Does the pt Need Aspirin: No Time of Disposition: 00:30 <KELVIN PENALOZA III - Last Filed: 06/25/19 01:07> Clinical Impression: Shortness of breath, MCLEAN (dyspnea on exertion), Cough CHF exacerbation Qualifiers: Heart failure type: unspecified Qualified Code(s): I50.9 - Heart failure, unspecified Pulmonary edema Qualifiers: Chronicity: acute Qualified Code(s): J81.0 - Acute pulmonary edema Disposition: OP ADMIT IP TO THIS HOSP Condition: Critical
[2019-06-24 23:11] LABS: Basophils # (Auto) 0.1 K/mm3 (0.0-0.1); Basophils % (Auto) 0.9 % (0.0-1.8); Eosinophils # (Auto) 0.3 K/mm3 (0.0-0.4); Eosinophils % (Auto) 4.9 % (0.0-4.3); Hematocrit 40.2 % (35.5-45.6); Hemoglobin 13.5 gm/dl (11.8-15.2); Lymphocytes % (Auto) 28.9 % (13.4-35.0); Mean Corpuscular HGB Conc 33 % (32-34); Mean Corpuscular Volume 83 fl (84-94); Monocytes # (Auto) 0.5 K/mm3 (0.0-0.8); Monocytes % (Auto) 7.5 % (0.0-7.3); Platelet Count 239 K/mm3 (140-440); Red Blood Count 4.87 M/mm3 (3.65-5.03); Red Cell Distribution Width 15.2 % (13.2-15.2)
[2019-06-24 23:37] LABS: BUN/Creatinine Ratio 16; Blood Urea Nitrogen 19 mg/dL (9-20); Calcium 9.2 mg/dL (8.4-10.2); Hemolysis Index 8
[2019-06-25] MEDS ORDERED: FUROSEMIDE 40 MG/4 ML INJ IV ONE (00:28)
--- NOTE | 2019-06-25 00:46 | History and Physical Report ---
History of Present Illness History of present illness: 44-year-old man with a history of hypertension, CHF with EF of 25 to 30%, obesity comes emergency room with complaints of shortness of breath x2 days, orthopnea, dyspnea on exertion. He denies any PND. Admits to drinking a gallon of water a day or more, stated he is compliant with his medications. The patient was diagnosed with CHF in February of last year. He denies any chest pain, patient will be admitted for CHF exacerbation Review Of Systems: Constitutional: no weight loss, fever, chills Ears, eyes, nose, mouth and throat: no nasal congestion, no nasal discharge, no sinus pressure, blurry vision, diplopia Neck: No neck pain or rigidity. Cardiovascular: No palpitations, chest pain Respiratory: No cough Gastrointestinal: No hematochezia, abdominal pain Genitourinary : no dysuria, frequency Musculoskeletal: no muscle ache , joint pain Integumentary: no rash, no pruritis Neurological: no parathesias, focal weakness Endocrine: no cold or heat intolerance, no polyuria or polydipsia Hematologic/Lymphatic: no easy bruising, no easy bleeding, no gland swelling Allergic/Immunologic: no urticaria, no angioedema. PAST MEDICAL HISTORY: hypertension, CHF, obesity PAST SURGICAL HISTORY: None SOCIAL HISTORY: Social alcohol, smokes half pack a day, no drugs FAMILY HISTORY: Hypertension Medications and Allergies Allergies Allergy/AdvReac Type Severity Reaction Status Date / Time No Known Allergies Allergy Verified 03/28/19 12:30 Home Medications Medication Instructions Recorded Confirmed Last Taken Type Valsartan [Diovan] 160 mg PO BID #60 tablet 03/28/19 Unknown Rx carvediloL [Coreg] 6.25 mg PO BID #60 tablet 03/28/19 Unknown Rx hydroCHLOROthiazide [HCTZ] 25 mg PO QDAY #30 tablet 03/28/19 Unknown Rx Exam - Physical Exam Narrative exam: Gen. appearance: Patient lying in bed, no apparent distress HEENT: Normocephalic, atraumatic, pupils equally round and reactive to light, extraocular movement intact, and no sclericterus,. No JVD or thyromegaly or nodule,neck supple, no carotid bruit ,mucous membranes moist, no exudate or erythema Heart: S1, S2, regular rate and rhythm Lungs: Crackles bilaterally, breathing comfortable Abdomen: Positive bowel sounds, nontender, nondistended, no organomegaly Extremity: no edema, cyanosis, clubbing Skin: No rash, nodules, warm, dry Neuro: speech is fluent, cranial nerves II to XII intact, motor and sensory intact - Constitutional Vitals: Temp Pulse Resp BP Pulse Ox 98.2 F 84 18 166/104 96 06/25/19 00:20 06/25/19 00:20 06/25/19 00:20 06/25/19 00:20 06/25/19 00:20 Results - Labs CBC & Chem 7: 06/24/19 22:49 06/24/19 22:49 Labs: Abnormal lab results 06/24/19 06/24/19 Range/Units 22:49 22:49 MCV 83 L (84-94) fl [place] % (Auto) 7.5 H (0.0-7.3) % Eos % (Auto) 4.9 H (0.0-4.3) % Sodium 147 H (137-145) mmol/L Glucose 156 H (75-100) mg/dL NT-Pro-B Natriuret Pep 611.6 H (0-450) pg/mL - Imaging and Cardiology EKG: image reviewed Chest x-ray: report reviewed Assessment and Plan Assessment Mild CHF exacerbation, acute on chronic systolic Diuresed with IV Lasix Continue beta-xochitl, ARB, aspirin, consult cardiology Will not repeat echocardiogram, one was done in February Check cardiac enzymes, monitor I's and O's, daily weights Dietary consult for education Hypertension, uncontrolled Continue antihypertensive, add IV hydralazine for blood pressure control Hypernatremia Continue to monitor DVT prophylaxis
[2019-06-25] MEDS ORDERED: ONDANSETRON 4 MG/2 ML INJ IV PRN (01:03)
[2019-06-25] MEDS ORDERED: ACETAMINOPHEN 325 MG TAB PO PRN (01:03)
[2019-06-25] MEDS ORDERED: oxyCODONE /ACETAMINOPHEN 5-325MG TAB PO PRN (01:03)
[2019-06-25 06:34] LABS: Basophils % (Auto) 0.8 % (0.0-1.8); Eosinophils # (Auto) 0.3 K/mm3 (0.0-0.4); Eosinophils % (Auto) 5.2 % (0.0-4.3); Hematocrit 41.8 % (35.5-45.6); Hemoglobin 14.1 gm/dl (11.8-15.2); Lymphocytes # (Auto) 1.6 K/mm3 (1.2-5.4); Lymphocytes % (Auto) 27.5 % (13.4-35.0); Mean Corpuscular HGB Conc 34 % (32-34); Mean Corpuscular Volume 82 fl (84-94); Monocytes # (Auto) 0.3 K/mm3 (0.0-0.8); Monocytes % (Auto) 5.8 % (0.0-7.3); Platelet Count 240 K/mm3 (140-440); Red Cell Distribution Width 15.7 % (13.2-15.2)
[2019-06-25 06:40] LABS: Creatine Kinase MB 3.3 ng/mL (0.0-4.0)
[2019-06-25 06:50] LABS: BUN/Creatinine Ratio 15; Blood Urea Nitrogen 17 mg/dL (9-20); Calcium 9.3 mg/dL (8.4-10.2); Hemolysis Index 2
[2019-06-25] MEDS: FUROSEMIDE 40 MG/4 ML INJ IV SCH ×2 (07:00→18:05)
[2019-06-25 08:19] LABS: Creatine Kinase MB 3.5 ng/mL (0.0-4.0)
[2019-06-25] MEDS: ASPIRIN 81 MG TAB CHEW PO SCH (09:19)
[2019-06-25] MEDS: ENOXAPARIN 40 MG/0.4 ML INJ SUB-Q SCH (09:21)
[2019-06-25] MEDS: carvediloL 6.25 MG TAB PO SCH ×2 (09:21→22:55)
--- NOTE | 2019-06-25 09:56 | Event Note ---
Date: 06/25/19 Patient presents with SOB, diagnosed with CHF exacerbation. I have seen and examined him.
[2019-06-25] MEDS ORDERED: VALSARTAN 160MG TAB PO SCH (10:00)
--- NOTE | 2019-06-25 17:47 | Consultation ---
History of Present Illness Consult date: 06/25/19 Consult reason: congestive heart failure History of present illness: The patient is a 44-year-old man who presented with cough, body aches, shortness of breath. Chest x-ray on presentation was cardiomegaly, but no significant interstitial edema or heart failure decompensation. EKG reveals normal sinus rhythm, left axis deviation, left ventricular hypertrophy. The patient's past medical history is notable for obesity and chronic severe hypertension. He is admittedly noncompliant with medical therapy for hypertension control, and noncompliant with outpatient follow-up with his doctors. On this presentation, his systolic blood pressure is persistently ranged 170s to 180s. Also notably, the patient was in this hospital 3 months ago, with similar symptoms, although at time he was managed by the internal medicine service, on echocardiogram ordered prior to discharge most related to his severe dilated cardiomyopathy with ejection fraction reported at 25%. The patient states that he was presented with this inflammation of the time, but chose to discharge himself AGAINST MEDICAL ADVICE did not follow up outpatient appointments that he was given. He states that prior to that time there was no cardiac history. Habits include chronic tobacco abuse. 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 Past History Past Medical History: heart failure, hypertension, other (obesity) Medications and Allergies Allergies Allergy/AdvReac Type Severity Reaction Status Date / Time No Known Allergies Allergy Verified 03/28/19 12:30 Home Medications Medication Instructions Recorded Confirmed Last Taken Type Valsartan [Diovan] 160 mg PO BID #60 tablet 03/28/19 06/25/19 Unknown Rx carvediloL [Coreg] 6.25 mg PO BID #60 tablet 03/28/19 06/25/19 Unknown Rx hydroCHLOROthiazide [HCTZ] 25 mg PO QDAY #30 tablet 03/28/19 06/25/19 Unknown Rx Potassium Chloride [Klor-Con] 20 meq PO QDAY 06/25/19 06/25/19 Unknown History Active Meds: Active Medications Acetaminophen (Tylenol) 650 mg PO Q4H PRN PRN Reason: Pain MILD(1-3)/Fever >100.5/FRIAS Aspirin (Baby Aspirin) 81 mg PO QDAY [facility] Last Admin: 06/25/19 09:19 Dose: 81 mg Documented by: Carvedilol (Coreg) 6.25 mg PO BID [facility] Last Admin: 06/25/19 09:21 Dose: 6.25 mg Documented by: Enoxaparin Sodium (Enoxaparin) 40 mg SUB-Q QDAY [facility] Last Admin: 06/25/19 09:21 Dose: 40 mg Documented by: Furosemide (Lasix) 40 mg IV BID@0600,1800 [facility] Last Admin: 06/25/19 07:00 Dose: 40 mg Documented by: Ondansetron HCl (Zofran) 4 mg IV Q8H PRN PRN Reason: Nausea And Vomiting Oxycodone/Acetaminophen (Percocet 5/325) 1 tab PO Q6H PRN PRN Reason: Pain, Moderate (4-6) Sodium Chloride (Sodium Chloride Flush Syringe 10 Ml) 10 ml IV BID [facility] Last Admin: 06/25/19 09:22 Dose: 10 ml Documented by: Sodium Chloride (Sodium Chloride Flush Syringe 10 Ml) 10 ml IV PRN PRN PRN Reason: LINE FLUSH Valsartan (Diovan) 160 mg PO DAILY [facility] Last Admin: 06/25/19 09:19 Dose: 160 mg Documented by: Review of Systems Cardiovascular: orthopnea, edema, shortness of breath, no chest pain, no pal pitations, no rapid/irregular heart beat, no syncope, no lightheadedness Physical Examination Vital Signs Temp Pulse Resp BP Pulse Ox 98.3 F 97 H 20 170/105 94 06/24/19 18:59 06/24/19 18:59 06/24/19 18:59 06/24/19 18:59 06/24/19 18:59 General appearance: obese HEENT: Positive: PERRL Neck: Positive: neck supple Cardiac: Positive: Reg Rate and Rhythm Lungs: Positive: Decreased Breath Sounds Neuro: Positive: Grossly Intact Abdomen: Positive: Soft Male genitourinary: Positive: deferred Skin: Positive: Clear Extremities: Absent: edema Results 06/25/19 05:47 06/25/19 05:47 Cardiac Enzymes 06/25/19 06/25/19 Range/Units 05:47 07:18 CK-MB (CK-2) 3.3 3.5 (0.0-4.0) ng/mL CBC 06/24/19 06/25/19 Range/Units 22:49 05:47 WBC 6.9 5.8 (4.5-11.0) K/mm3 RBC 4.87 5.10 H (3.65-5.03) M/mm3 Hgb 13.5 14.1 (11.8-15.2) gm/dl Hct 40.2 41.8 (35.5-45.6) % Plt Count 239 240 (140-440) K/mm3 Lymph # 2.0 1.6 (1.2-5.4) K/mm3 [place] # 0.5 0.3 (0.0-0.8) K/mm3 Eos # 0.3 0.3 (0.0-0.4) K/mm3 Baso # 0.1 0.0 (0.0-0.1) K/mm3 Comprehensive Metabolic Panel 06/24/19 06/25/19 Range/Units 22:49 05:47 Sodium 147 H 145 (137-145) mmol/L Potassium 4.1 3.9 (3.6-5.0) mmol/L Chloride 106.4 103.3 (98-107) mmol/L Carbon Dioxide 26 26 (22-30) mmol/L BUN 19 17 (9-20) mg/dL Creatinine 1.2 1.1 (0.8-1.5) mg/dL Glucose 156 H 188 H (75-100) mg/dL Calcium 9.2 9.3 (8.4-10.2) mg/dL EKG interpretations - Telemetry EKG Rhythm: Sinus Rhythm Assessment and Plan - Patient Problems (1) Acute on chronic systolic heart failure Current Visit: Yes Status: Acute Plan to address problem: The patient has a severe dilated cardiomyopathy and chronic systolic left ventricular failure, UNCERTAIN duration, first diagnosed 3 months ago. He has been noncompliant with medical therapy, we'll currently recommend aggressive management with afterload agents, beta blockers, diuretics. Aggressive blood pressure management, salt restricted diet, and the predischarge Lexiscan thallium stress test.
[2019-06-25] MEDS: SPIRONOLACTONE 25 MG TAB PO SCH (22:50)
[2019-06-25] MEDS: NIFEdipine XL 60 MG TAB PO SCH (22:55)
[2019-06-25] MEDS: VALSARTAN 160MG TAB PO SCH (22:55)
[2019-06-26] MEDS: FUROSEMIDE 40 MG/4 ML INJ IV SCH ×2 (06:37→17:47)
[2019-06-26] MEDS ORDERED: REGADENOSON 0.4 MG/5 ML INJ IV ONE (08:15)
[2019-06-26] MEDS ORDERED: LORazepam 2 MG/ML VIAL IV NR (08:31)
[2019-06-26] MEDS: ENOXAPARIN 40 MG/0.4 ML INJ SUB-Q SCH (11:10)
[2019-06-26] MEDS: ASPIRIN 81 MG TAB CHEW PO SCH (11:10)
[2019-06-26] MEDS: NIFEdipine XL 60 MG TAB PO SCH ×2 (11:11→22:12)
[2019-06-26] MEDS: carvediloL 6.25 MG TAB PO SCH ×2 (11:11→22:12)
[2019-06-26] MEDS: SPIRONOLACTONE 25 MG TAB PO SCH (11:11)
[2019-06-26] MEDS: VALSARTAN 160MG TAB PO SCH ×2 (11:11→22:12)
--- NOTE | 2019-06-26 12:18 | Progress Note ---
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 Subjective Date of service: 06/26/19 Principal diagnosis: CHF Interval history: Patient underwent lexiscan today without complications Objective Vital Signs Temp Pulse Pulse Resp BP BP Pulse Ox 06/26/19 11:54 98.0 F 91 H 18 136/93 93 06/26/19 11:11 87 153/101 06/26/19 10:02 147/95 06/26/19 10:00 152/88 06/26/19 09:57 161/102 06/26/19 09:32 154/101 06/26/19 04:56 98.1 F 82 20 156/103 98 06/26/19 03:00 82 06/26/19 00:49 97.9 F 82 18 170/124 95 06/26/19 00:00 81 165/115 06/25/19 22:55 79 178/125 06/25/19 22:50 90 173/121 06/25/19 22:04 98 06/25/19 20:39 97.7 F 90 16 173/121 95 06/25/19 20:00 90 18 95 06/25/19 19:00 90 06/25/19 16:49 98.6 F 86 18 141/99 96 06/25/19 13:09 98.3 F 84 18 170/110 95 - Physical Examination HEENT: Positive: PERRL Neck: Positive: neck supple Cardiac: Positive: Reg Rate and Rhythm Lungs: Positive: Normal Exam Neuro: Positive: Grossly Intact Abdomen: Positive: Soft Skin: Positive: Clear Extremities: Absent: edema - Imaging and Cardiology EKG: image reviewed
--- NOTE | 2019-06-26 14:55 | Treadmill Report ---
INDICATION: Cardiomyopathy. ORDERING PHYSICIAN: Shade Cano MD FINDINGS: The left ventricular cavity is severely dilated. The left ventricular ejection fraction is calculated at 20% with evidence of severe global left ventricular hypokinesis. There is no scintigraphic evidence of myocardial ischemia. There is evidence of a fixed inferior wall defect due to overlying diaphragmatic attenuation. Findings are consistent with nonischemic cardiomyopathy. IMPRESSION: 1. Severely dilated left ventricular cavity with severe global left ventricular hypokinesis. 2. No scintigraphic evidence of myocardial ischemia, findings consistent with nonischemic cardiomyopathy. 3. Diaphragmatic attenuation noted. JOB# [id number] SUMEET/RACHEL
--- NOTE | 2019-06-26 16:05 | Progress Note ---
Assessment and Plan Assessment and plan: Mild CHF exacerbation, acute on chronic systolic Diuresed with IV Lasix Continue beta-xochitl, ARB, aspirin, consult cardiology Will not repeat echocardiogram, one was done in February Check cardiac enzymes, monitor I's and O's, daily weights Dietary consult for education Hypertension, uncontrolled Continue antihypertensive, add IV hydralazine for blood pressure control Hypernatremia Continue to monitor DVT prophylaxis History Interval history: Less shortness of breath Hospitalist Physical - Physical exam Narrative exam: GEN: Not in acute distress, lying in bed, normal bowel sounds HEENT: Normocephalic, atraumatic, Neck: supple, No JVD Lungs: Clear to auscultation ,no wheeze, heart;S1 and S2 reg, no murmurs, rubs or gallop Abd:soft, non tender, non distended, normal bowel sounds Ext: No edema, no clubbing, no cyanosis Neuro: Awake,alert, oriented X 3, moves all ext - Constitutional Vitals: Temp Pulse Resp BP Pulse Ox 98.0 F 91 H 18 136/93 93 06/26/19 11:54 06/26/19 11:54 06/26/19 11:54 06/26/19 11:54 06/26/19 11:54 General appearance: Present: obese Results - Labs CBC & Chem 7: 06/25/19 05:47 06/25/19 05:47 Labs: Laboratory Last Values WBC 5.8 K/mm3 (4.5-11.0) 06/25/19 05:47 RBC 5.10 M/mm3 (3.65-5.03) H 06/25/19 05:47 Hgb 14.1 gm/dl (11.8-15.2) 06/25/19 05:47 Hct 41.8 % (35.5-45.6) 06/25/19 05:47 MCV 82 fl (84-94) L 06/25/19 05:47 MCH 28 pg (28-32) 06/25/19 05:47 MCHC 34 % (32-34) 06/25/19 05:47 RDW 15.7 % (13.2-15.2) H 06/25/19 05:47 Plt Count 240 K/mm3 (140-440) 06/25/19 05:47 Lymph % (Auto) 27.5 % (13.4-35.0) 06/25/19 05:47 [place] % (Auto) 5.8 % (0.0-7.3) 06/25/19 05:47 Eos % (Auto) 5.2 % (0.0-4.3) H 06/25/19 05:47 Baso % (Auto) 0.8 % (0.0-1.8) 06/25/19 05:47 Lymph # 1.6 K/mm3 (1.2-5.4) 06/25/19 05:47 [place] # 0.3 K/mm3 (0.0-0.8) 06/25/19 05:47 Eos # 0.3 K/mm3 (0.0-0.4) 06/25/19 05:47 Baso # 0.0 K/mm3 (0.0-0.1) 06/25/19 05:47 Seg Neutrophils % 60.7 % (40.0-70.0) 06/25/19 05:47 Seg Neutrophils # 3.5 K/mm3 (1.8-7.7) 06/25/19 05:47 Sodium 145 mmol/L (137-145) 06/25/19 05:47 Potassium 3.9 mmol/L (3.6-5.0) 06/25/19 05:47 Chloride 103.3 mmol/L (98-107) 06/25/19 05:47 Carbon Dioxide 26 mmol/L (22-30) 06/25/19 05:47 Anion Gap 20 mmol/L 06/25/19 05:47 BUN 17 mg/dL (9-20) 06/25/19 05:47 Creatinine 1.1 mg/dL (0.8-1.5) 06/25/19 05:47 Estimated GFR > 60 ml/min 06/25/19 05:47 BUN/Creatinine Ratio 15 % 06/25/19 05:47 Glucose 188 mg/dL (75-100) H 06/25/19 05:47 Calcium 9.3 mg/dL (8.4-10.2) 06/25/19 05:47 Total Creatine Kinase 252 units/L (55-170) H 06/25/19 07:18 CK-MB (CK-2) 3.5 ng/mL (0.0-4.0) 06/25/19 07:18 CK-MB (CK-2) Rel Index 1.3 (0-4) 06/25/19 07:18 Troponin T < 0.010 ng/mL (0.00-0.029) 06/25/19 07:18 NT-Pro-B Natriuret Pep 611.6 pg/mL (0-450) H 06/24/19 22:49 Active Medications - Current Medications Current Medications: Generic Name Dose Route Start Last Admin Trade Name Freq PRN Reason Stop Dose Admin Acetaminophen 650 mg 06/25/19 01:03 Tylenol PO Q4H PRN Pain MILD(1-3)/Fever >100.5/FRIAS Aspirin 81 mg 06/25/19 10:00 06/26/19 11:10 Baby Aspirin PO 81 mg QDAY ROSA Administration Carvedilol 6.25 mg 06/25/19 10:00 06/26/19 11:11 Coreg PO 6.25 mg BID ROSA Administration Enoxaparin Sodium 40 mg 06/25/19 10:00 06/26/19 11:10 Enoxaparin SUB-Q 40 mg QDAY ROSA Administration Furosemide 40 mg 06/25/19 06:00 06/26/19 06:37 Lasix IV 40 mg BID@0600,1800 ROSA Administration Nifedipine 60 mg 06/25/19 22:00 06/26/19 11:11 Procardia Xl PO 60 mg Q12HR ROSA Administration Ondansetron HCl 4 mg 06/25/19 01:03 Zofran IV Q8H PRN Nausea And Vomiting Oxycodone/Acetaminophen 1 tab 06/25/19 01:03 Percocet 5/325 PO Q6H PRN Pain, Moderate (4-6) Sodium Chloride 10 ml 06/25/19 10:00 06/26/19 11:12 Sodium Chloride Flush Syringe 10 Ml IV 10 ml BID ROSA Administration Sodium Chloride 10 ml 06/25/19 01:03 Sodium Chloride Flush Syringe 10 Ml IV PRN PRN LINE FLUSH Spironolactone 25 mg 06/25/19 20:00 06/26/19 11:11 Aldactone PO 25 mg QDAY ROSA Administration Valsartan 160 mg 06/25/19 22:00 06/26/19 11:11 Diovan PO 160 mg BID ROSA Administration Nutrition/Malnutrition Assess - Dietary Evaluation Nutrition/Malnutrition Findings: Nutrition Notes Start: 06/25/19 15:25 Freq: Status: Active Protocol: Document 06/25/19 15:25 LM (Rec: 06/25/19 15:34 LM [id number]) Nutrition Notes Need for Assessment generated from: MD Order,Education Initial or Follow up Brief Note Current Diagnosis Hypertension,Heart Failure Other Pertinent Diagnosis SOB Current Diet Cardiac Subjective/Other Information MD consult for diet education. Pt with a good appetite. Discussed low sodium food options and label reading. Encouraged pt to decrease rice portions and choose whole grains/brown rice in place of white rice, lean meats and fish, vegetables, and healthy fats (olive oil in place of butter, salmon) Discussed hidden sources of sodium ( canned foods, restaurant foods , sauces). Pt stated that he stays away from fried food and sodas. Encouraged pt to continue these habits. #1 Nutrition Diagnosis Food and nutrition-related knowledge deficit Etiology No prior hypertension/heart healthy diet education As Evidenced by Signs and Symptoms pt unaware of various sodium sources, pt needing education Nutrition Intervention Teaching Recipient Patient Learning Readiness Good Teaching Methods Discussion,Handout Response to Teaching Verbalize understanding Education Handouts Provided Hypertension Barriers to Learning No Barriers RD phone number provided Yes Patient aware of follow up options Yes Revisit per MD consult or patient Sign Off request:
[2019-06-27] MEDS: FUROSEMIDE 40 MG/4 ML INJ IV SCH (05:37)
[2019-06-27] MEDS: ASPIRIN 81 MG TAB CHEW PO SCH (09:25)
[2019-06-27] MEDS: ENOXAPARIN 40 MG/0.4 ML INJ SUB-Q SCH (09:25)
[2019-06-27] MEDS: NIFEdipine XL 60 MG TAB PO SCH (09:25)
[2019-06-27] MEDS: SPIRONOLACTONE 25 MG TAB PO SCH (09:25)
[2019-06-27] MEDS: VALSARTAN 160MG TAB PO SCH (09:26)
[2019-06-27] MEDS: carvediloL 6.25 MG TAB PO SCH (09:26)
--- NOTE | 2019-06-27 11:08 | Progress Note ---
Assessment and Plan Acute systolic heart failure resolved. 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 Lasix every day Subjective Date of service: 06/27/19 Principal diagnosis: CHF Interval history: No significant events overnight Objective Vital Signs Temp Pulse Pulse Resp BP Pulse Ox 06/27/19 09:26 83 151/94 06/27/19 09:25 83 151/94 06/27/19 08:21 98.2 F 78 18 135/86 96 06/27/19 07:46 79 15 97 06/27/19 04:50 98.2 F 81 20 137/88 94 06/26/19 23:59 98.5 F 81 22 125/72 95 06/26/19 22:59 91 H 06/26/19 22:12 146/99 06/26/19 20:52 98.4 F 89 18 148/98 97 06/26/19 20:29 88 148/98 96 06/26/19 20:10 95 06/26/19 18:46 84 161/100 96 06/26/19 11:54 98.0 F 91 H 18 136/93 93 06/26/19 11:11 87 153/101 - Physical Examination HEENT: Positive: PERRL, Normocephaly, Other Neck: Positive: neck supple Cardiac: Positive: Reg Rate and Rhythm Lungs: Positive: clear to auscultation Neuro: Positive: Grossly Intact Abdomen: Positive: Soft Skin: Positive: Clear Extremities: Present: normal. Absent: edema - Imaging and Cardiology EKG: image reviewed
--- NOTE | 2019-06-27 11:22 | Discharge Summary ---
Providers - Providers Date of Admission: 06/25/19 00:45 Date of discharge: 06/27/19 Attending physician: DOMINIQUE ESPOSITO 06/25/19 01:03 Consult to Physician [CONS] Routine Comment: Consulting Provider: DOMINIQUE CH Physician Instructions: Reason For Exam: chf 06/25/19 01:06 Consult to Dietitian/Nutrition [CONS] Routine Physician Instructions: Reason For Exam: Reason for Consult: Patient on ventilator Reason for Consult: Diet education Primary care physician: IT HELP DESK MANAGER Hospitalization Condition: Fair Disposition: DC-01 TO HOME OR SELFCARE Core Measure Documentation - Palliative Care Palliative Care/ Comfort Measures: Not Applicable - Core Measures Any of the following diagnoses?: heart failure - Heart Failure Discharge Requirements ENIO/ARB for LVSD if EF <40%: Yes Beta xochitl at discharge: Yes Exam - Constitutional Vitals: Temp Pulse Resp BP Pulse Ox 98.2 F 83 18 151/94 96 06/27/19 08:21 06/27/19 09:26 06/27/19 08:21 06/27/19 09:26 06/27/19 08:21 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 2.Follow up with Dr. Villanueva in 1 week Follow up with: PRIMARY CARE, [Primary Care Provider] - 3-5 Days Prescriptions: Spironolactone [Aldactone] 25 mg PO QDAY #30 tablet carvediloL [Coreg] 6.25 mg PO BID #60 tablet Valsartan [Diovan] 160 mg PO BID #60 tablet NIFEdipine XL [Procardia Xl] 60 mg PO Q12HR #60 tablet
[2019-06-27 12:11] VITALS: BP 136/91
== END 2019-06-27 12:35 | disposition home or self-care (01) | DRG 291 ==
LOC: ED 18:13 → 4A 06-25 00:45
PROVIDERS: ADMIT Internal Medicine; ATTEND Internal Medicine
DX: I11.0 Hypertensive heart disease with heart failure (principal); J81.0 Acute pulmonary edema; E87.0 Hyperosmolality and hypernatremia; Z68.42 Body mass index [BMI] 45.0-49.9, adult; I50.23 Acute on chronic systolic (congestive) heart failure; I42.8 Other cardiomyopathies; F17.210 Nicotine dependence, cigarettes, uncomplicated; E66.01 Morbid (severe) obesity due to excess calories; Z71.6 Tobacco abuse counseling; Z82.49 Family history of ischemic heart disease and other diseases of the circulatory system; Z71.3 Dietary counseling and surveillance; Z91.14 Patient's other noncompliance with medication regimen
CPT/HCPCS: 36415; 71046; 78452; 80048; 82550; 82553; 83880; 84484; 85025; 93005; 93010; 93017; 96374; 99406; G0378; A9502; J1650; J1940; J2060; J2785

== ENCOUNTER 2021-10-15 23:19 | Emergency (ER) | payer SELFPAY | END 2021-10-16 01:00 | disposition left against medical advice (07) | LOC: ED 23:19 | DX: M54.9 Dorsalgia, unspecified (principal); Z53.21 Procedure and treatment not carried out due to patient leaving prior to being seen by health care provider ==